=== PATIENT | male | born 1985 | race African-American/Black ===

== ENCOUNTER 2017-12-13 17:12 | Emergency (ER) | payer SELFPAY ==
[2017-12-13] MEDS: IPRATROPIUM 0.5MG/ALBUTEROL 2.5MG INH SOL UD 3ML (DUONEB)(J7620) NEB (17:26)
[2017-12-13] MEDS: methylPREDNISolone INJ 125 MG/2 ML VIAL (J2930) IM (17:35)
[2017-12-13] MEDS: ALBUTEROL 90 MCG/ACT 8GM HFA INHALER INH (18:14)
== END 2017-12-13 18:16 | disposition home or self-care (01) ==
LOC: M ED 17:12
DX: J45.901 Unspecified asthma with (acute) exacerbation (principal); Z91.048 Other nonmedicinal substance allergy status
CPT/HCPCS: J2930

== ENCOUNTER 2018-08-01 01:00 | Emergency (ER) | payer SELFPAY, BC | END 2018-08-01 01:36 | disposition home or self-care (01) | LOC: M ED 01:00 | DX: F10.229 Alcohol dependence with intoxication, unspecified (principal); J45.909 Unspecified asthma, uncomplicated | CPT/HCPCS: 99284 ==

== ENCOUNTER 2018-12-24 18:31 | Emergency (ER) | payer BC ==
[~2018-12-24] VITALS: Ht 167.6 cm; Wt 56.8 kg
[~2018-12-24 18:31] MED LIST: PRED20TA PO; VENTAER INH
[2018-12-24 20:32] VITALS: BP 131/81
[2018-12-24] MEDS ORDERED: methylPREDNISolone INJ 125 MG/2 ML VIAL (J2930) IM ONE (20:45)
[2018-12-24] MEDS ORDERED: IPRATROPIUM 0.5MG/ALBUTEROL 2.5MG INH SOL UD 3ML (DUONEB)(J7620) NEB ONE ×2 (20:45)
[2018-12-24] MEDS ORDERED: PRED20TA PO (21:11)
--- NOTE | 2018-12-24 22:02 | ECGEPIP ---
Stationary ECG Study [facility] - ED Test Date: 2018-12-24 Pat Name: ANALIA GARCIA Department: Room: - Gender: M [employer] Operator: MELL : 1985 Requested By: NATALIIA Edwards PA-C Order Number: [id number] Reading MD: Diane Kingsley Measurements Intervals Curtis Rate: 101 P: 82 MD: 136 QRS: 53 QRSD: 98 T: 63 QT: 298 QTc: 387 Interpretive Statements SINUS TACHYCARDIA POSSIBLE RIGHT VENTRICULAR CONDUCTION DELAY NONSPECIFIC T-WAVE ABNORMALITY ABNORMAL RHYTHM ECG NO PRIOR FOR COMPARISON Electronically Signed On 12-24-2018 22:02:34 EDT by Diane Kingsley
== END 2018-12-24 21:20 | disposition home or self-care (01) ==
LOC: M ED 18:31
DX: J45.901 Unspecified asthma with (acute) exacerbation (principal); F41.9 Anxiety disorder, unspecified
CPT/HCPCS: 93005; 94640; 96372; 99284; J2930

== ENCOUNTER 2019-05-14 00:49 | Emergency (ER) | payer BC, SELFPAY ==
[~2019-05-14] VITALS: Ht 167.6 cm; Wt 56.8 kg
[2019-05-14] MEDS ORDERED: dexameTHASONE 20 MG/5 ML VIAL (J1100) IV ONE (01:30)
[2019-05-14] MEDS: IPRATROPIUM 0.5MG/ALBUTEROL 2.5MG INH SOL UD 3ML (DUONEB)(J7620) NEB SCH ×3 (01:43→01:58)
[2019-05-14 01:56] LABS: ABG BASE EXCESS -1.2 (-2.0-2.0); ABG HCO3 21.8 MEQ/L (22.0-26.0); ABG O2 SATURATION 95.8 % (95.0-99.0); ABG STANDARD HCO3 23.4 MEQ/L (22.0-26.0); ABG TOTAL CO2 22.8 MEQ/L (22.0-29.0); ABG pH (ARTERIAL) 7.451 UNITS (7.350-7.450)
[2019-05-14 01:57] LABS: BASO % 0.3 % (0.0-1.0); EOS # 0.1 10^3/uL (0.0-0.50); EOS % 0.6 % (0.0-3.0); HEMATOCRIT 41.8 % (42.0-52.0); HEMOGLOBIN 14.4 g/dl (13.5-17.5); LYMPH % 9.8 % (24.0-44.0); MEAN CORPUSCULAR HEMOGLOBIN 31.4 pg (27.0-33.0); MEAN CORPUSCULAR HGB CONC 34.4 g/dl (32.0-36.5); MEAN CORPUSCULAR VOLUME 91.3 fl (80.0-96.0); MONO # 0.5 10^3/uL (0.0-0.8); MONO % 5.1 % (0.0-5.0); NEUTROPHILS # 8.6 10^3/uL (1.8-7.7); NEUTROPHILS % 83.9 % (36.0-66.0); PLATELET COUNT, AUTOMATED 264 10^3/uL (150-450); RED BLOOD COUNT 4.58 10^6/uL (4.30-6.10); WHITE BLOOD COUNT 10.3 10^3/uL (4.0-10.0)
[2019-05-14 02:12] LABS: BLOOD UREA NITROGEN 13 MG/DL (7-18); CALCIUM LEVEL 9.6 MG/DL (8.5-10.1); CARBON DIOXIDE LEVEL 28 MEQ/L (21-32); CHLORIDE LEVEL 107 MEQ/L (98-107); CREATININE FOR GFR 1.18 MG/DL (0.70-1.30); GLOMERULAR FILTRATION RATE > 60.0 (>60); GLUCOSE, FASTING 93 MG/DL (70-100); POTASSIUM SERUM 4.5 MEQ/L (3.5-5.1); SODIUM LEVEL 140 MEQ/L (136-145)
[2019-05-14] MEDS ORDERED: PRED20TA PO (03:18)
[2019-05-14] MEDS ORDERED: PROAAER10 INH (03:33)
[2019-05-14 03:36] VITALS: BP 118/66
--- NOTE | 2019-05-14 07:47 | REP ---
Clinical: Dyspnea . Comparison: 12/13/2017 . Technique: PA and lateral. Findings: The mediastinum and cardiac silhouette are normal. The lung del rio are clear and without acute consolidation, effusion, or pneumothorax. The skeletal structures are intact and normal. Impression: 1. No acute cardiopulmonary process. Electronically Signed by Kunal Kruse MD 05/14/2019 07:38 A
== END 2019-05-14 03:46 | disposition home or self-care (01) ==
LOC: M ED 00:49
DX: J45.909 Unspecified asthma, uncomplicated (principal)
CPT/HCPCS: 36600; 71046; 80048; 82803; 85025; 94640; 96374; 99284; J1100

== ENCOUNTER 2022-09-29 18:52 | Emergency (ER) | payer SELFPAY ==
[~2022-09-29] VITALS: Ht 167.6 cm; Wt 63.6 kg
[~2022-09-29 18:52] MED LIST changes: +PROAAER10 INH
[2022-09-29] MEDS ORDERED: IPRATROPIUM 0.5MG/ALBUTEROL 2.5MG INH SOL UD 3ML (DUONEB) As Ordered ONE (18:57)
[2022-09-29] MEDS ORDERED: IPRATROPIUM 0.5MG/ALBUTEROL 2.5MG INH SOL UD 3ML (DUONEB) NEB ONE ×3 (19:05→19:15)
[2022-09-29] MEDS ORDERED: methylPREDNISolone 125MG 2ML VIAL IV ONE (19:05)
[2022-09-29 19:31] LABS: VENOUS BASE EXCESS -2.5 (-2.0-2.0); VENOUS O2 SATURATION 97.4 % (60.0-80.0); VENOUS PARTIAL PRESSURE CO2 47.5 mmHg (38.0-50.0); VENOUS PARTIAL PRESSURE O2 108.3 mmHg (30.0-50.0); VENOUS PH 7.321 UNITS (7.330-7.430); VENOUS STANDARD HCO3 22.4 MEQ/L; VENOUS TOTAL CO2 25.4 MEQ/L (24.0-28.0)
[2022-09-29 19:41] LABS: BASO % 0.6 % (0.0-1.0); EOS # 0.4 10^3/uL (0.0-0.5); EOS % 5.9 % (0.0-3.0); HEMATOCRIT 42.9 % (42.0-52.0); HEMOGLOBIN 14.2 g/dl (13.5-17.5); LYMPH # 2.8 10^3/uL (1.5-5.0); LYMPH % 39.6 % (24.0-44.0); MEAN CORPUSCULAR HEMOGLOBIN 29.7 pg (27.0-33.0); MEAN CORPUSCULAR HGB CONC 33.1 g/dl (32.0-36.5); MEAN CORPUSCULAR VOLUME 89.7 fl (80.0-96.0); MONO # 0.4 10^3/uL (0.0-0.8); MONO % 5.1 % (2.0-8.0); NEUTROPHILS # 3.5 10^3/uL (1.5-8.5); NEUTROPHILS % 48.7 % (36.0-66.0); PLATELET COUNT, AUTOMATED 300 10^3/uL (150-450); RED BLOOD COUNT 4.78 10^6/uL (4.30-6.10); WHITE BLOOD COUNT 7.1 10^3/uL (4.0-10.0)
[2022-09-29 20:06] LABS: ALBUMIN 4.1 G/DL (3.2-5.2); ALKALINE PHOSPHATASE 52 U/L (46-116); ALT/SGPT 62 U/L (7.0-40); AST/SGOT 36 U/L (<34); BILIRUBIN,DIRECT 0.1 MG/DL (<0.4); BILIRUBIN,TOTAL 0.5 MG/DL (0.3-1.2); BLOOD UREA NITROGEN 17 MG/DL (9-23); CALCIUM LEVEL 8.8 MG/DL (8.5-10.1); CARBON DIOXIDE LEVEL 24 MMOL/L (20-31); CHLORIDE LEVEL 107 MMOL/L (98-107); CREATININE FOR GFR 0.97 MG/DL (0.70-1.30); GLOMERULAR FILTRATION RATE > 60.0 (>60); GLUCOSE, FASTING 96 MG/DL (60-100); POTASSIUM SERUM 4.3 MMOL/L (3.5-5.1); SODIUM LEVEL 141 MMOL/L (136-145); TOTAL PROTEIN 7.1 G/DL (5.7-8.2)
[2022-09-29 20:08] LABS: THYROID STIMULATING HORMONE 0.666 uIU/ML (0.55-4.78)
[2022-09-29 20:09] LABS: THYROXINE (T4) 7.6 UG/DL (4.5-10.9)
[2022-09-29] MEDS ORDERED: VENTAER INH (22:21)
[2022-09-29] MEDS ORDERED: PRED20TA PO (22:21)
[2022-09-29] MEDS ORDERED: ALBUTEROL 90 MCG/ACT 8GM HFA INHALER INH ONE (22:25)
[2022-09-29 22:45] VITALS: BP 118/59
== END 2022-09-29 22:59 | disposition home or self-care (01) ==
LOC: M ED 20:29
DX: J45.901 Unspecified asthma with (acute) exacerbation (principal); F33.9 Major depressive disorder, recurrent, unspecified; F41.9 Anxiety disorder, unspecified; R94.31 Abnormal electrocardiogram [ECG] [EKG]; Z79.51 Long term (current) use of inhaled steroids

== ENCOUNTER 2025-07-26 18:10 | Emergency (ER) | payer SELFPAY ==
[~2025-07-26] VITALS: Ht 167.6 cm; Wt 60.1 kg
[2025-07-26] MEDS: ACETAMINOPHEN 500 MG TAB PO ONE (20:09)
[2025-07-26 20:50] VITALS: BP 125/58; TEMP 96.9; O2SAT 97
== END 2025-07-26 21:24 | disposition home or self-care (01) ==
LOC: M ED 18:10
DX: J02.9 Acute pharyngitis, unspecified (principal); J45.909 Unspecified asthma, uncomplicated; F41.9 Anxiety disorder, unspecified; F32.A Depression, unspecified; Z91.09 Other allergy status, other than to drugs and biological substances; Z79.51 Long term (current) use of inhaled steroids; Z79.52 Long term (current) use of systemic steroids